=== PATIENT | male | born 1965 | race African-American/Black ===

== ENCOUNTER 2017-10-12 18:42 | Emergency (ER) | payer MEDICAID ==
[~2017-10-12] VITALS: Ht 188 cm; Wt 110.0 kg
[2017-10-12] MEDS: ACETAMINOPHEN 325 MG TABLET PO ONE (20:22)
[2017-10-12 21:17] LABS: INFLUENZA TYPE A NEGATIVE FOR TYPE A (NEGATIVE); INFLUENZA TYPE B NEGATIVE FOR TYPE B (NEGATIVE)
[2017-10-12 21:46] VITALS: BP 142/80
== END 2017-10-12 21:47 | disposition home or self-care (01) ==
LOC: EMS 18:48
DX: J06.9 Acute upper respiratory infection, unspecified (principal); I10 Essential (primary) hypertension
CPT/HCPCS: 87804; 99284